=== PATIENT | female | born 1985 | race Two or more races ===

== ENCOUNTER 2016-12-12 22:29 | Inpatient (IN) | payer OTHER ==
[~2016-12-12] VITALS: Ht 134.6 cm; Wt 59.0 kg
[~2016-12-12 22:29] MED LIST: CIPR500T94 PO; PHEN-318 PO
[2016-12-12 23:02] LABS: BILIRUBIN,URINE NEGATIVE (NEG); GLUCOSE,URINE 100 mg/dL (NEG); NITRITE,URINE POSITIVE (NEG); PROTEIN,URINE 30 mg/dL (NEG-TRACE); UROBILINOGEN,URINE 0.2 mg/dL (0.2 mg/dL)
[2016-12-12 23:08] LABS: BASO % 0 % (0-3); EOS % 0 % (0-3); HEMATOCRIT 35.6 % (36.0-47.0); HEMOGLOBIN 11.9 g/dL (12.0-15.5); LYMPH # 1.6 x10^3/uL (1.0-4.8); LYMPH % 13 % (24-48); MEAN CORPUSCULAR HEMOGLOBIN 28 pg (25-35); MEAN CORPUSCULAR HGB CONC 34 g/dL (31-37); MEAN CORPUSCULAR VOLUME 85 fL (79-100); MONO % 12 % (0-9); NEUT % 75 % (31-73); PLATELET COUNT 201 x10^3/uL (140-400); RED CELL DISTRIBUTION WIDTH 13.8 % (11.5-14.5); WHITE BLOOD COUNT 11.8 x10^3/uL (4.0-11.0)
--- NOTE | 2016-12-12 23:09 | PHYS DOC ---
Past Medical History Past Medical History: No Pertinent History Past Surgical History: Cholecystectomy Alcohol Use: None Drug Use: None Adult General Chief Complaint Chief Complaint: FLANK PAIN HPI HPI 31-year-old female comes in with left flank pain is worsened over the last 3 days and is somewhat intermittent in nature. She also has dysuria with some mild hematuria. She has had symptoms like this before that were present in September and it sounds like she had a polynephritis that resolved with oral antibiotic therapy. She denies any other major health problems. She denies any nausea or vomiting. She states she has been able to eat and drink without difficulty. She denies any significant abdominal pain. She denies any vaginal bleeding. She rates her pain about a 6 out of 10 localized all to the left flank. Review of Systems Review of Systems Constitutional: Denies fever or chills [] Eyes: Denies change in visual acuity, redness, or eye pain [] HENT: Denies nasal congestion or sore throat [] Respiratory: Denies cough or shortness of breath [] Cardiovascular: No additional information not addressed in HPI [] GI: Denies abdominal pain, nausea, vomiting, bloody stools or diarrhea [] : Has dysuria, has hematuria [] Musculoskeletal: Denies back pain or joint pain [] Integument: Denies rash or skin lesions [] Neurologic: Denies headache, focal weakness or sensory changes [] Endocrine: Denies polyuria or polydipsia [] Current Medications Current Medications Current Medications Medications (Trade) Dose Ordered Sig/Rachel Start Time Stop Time Status Last Admin Dose Admin Ceftriaxone Sodium/Sodium Chloride (Rocephin/Iv Sodium Chloride 0.9% 50ml) 50 ml @ 100 mls/hr Q24H 12/13/16 00:30 Fentanyl Citrate (Fentanyl 2ml Vial) 50 mcg 1X ONCE 12/12/16 23:15 12/12/16 23:16 DC 12/12/16 23:26 50 MCG Fentanyl Citrate 50 mcg 50 mcg PRN Q2HR PRN 12/13/16 00:30 12/14/16 00:29 Ondansetron HCl (Zofran) 4 mg PRN Q8HRS PRN 12/13/16 00:30 12/14/16 00:29 Potassium Chloride 60 meq 60 meq 1X ONCE 12/12/16 23:55 12/12/16 23:56 DC 12/13/16 00:23 60 MEQ Sodium Chloride (Iv Sodium Chloride 0.9% 1000ml Bag) 1,000 ml @ 125 mls/hr Q8H 12/13/16 00:30 12/14/16 00:29 Allergies Allergies Allergies Coded Allergies Type Severity Reaction Last Updated Verified No Known Drug Allergies 09/03/16 No Physical Exam Physical Exam Constitutional: Well developed, well nourished, no acute distress, non-toxic appearance. [] HENT: Normocephalic, atraumatic, bilateral external ears normal, oropharynx moist, no oral exudates, nose normal. [] Eyes: PERRLA, EOMI, conjunctiva normal, no discharge. [] Neck: Normal range of motion, no tenderness, supple, no stridor. [] Cardiovascular:Heart rate regular rhythm, no murmur [] Lungs & Thorax: Bilateral breath sounds clear to auscultation [] Abdomen: Bowel sounds normal, soft, no tenderness, no masses, no pulsatile masses. [] Skin: Warm, dry, no erythema, no rash. [] Back: No tenderness, left CVA tenderness. [] Extremities: No tenderness, no cyanosis, no clubbing, ROM intact, no edema. [] Neurologic: Alert and oriented X 3, normal motor function, normal sensory function, no focal deficits noted. [] Psychologic: Affect normal, judgement normal, mood normal. [] Current Patient Data Vital Signs Vital Signs Date Time Temp Pulse Resp B/P Pulse Ox O2 Delivery O2 Flow Rate FiO2 12/12/16 22:50 99.2 107 16 110/66 97 Room Air 99.2 Lab Values Laboratory Tests Test 12/12/16 22:00 12/12/16 22:45 12/12/16 22:51 White Blood Count 11.8x10^3/uL (4.0-11.0) H Red Blood Count 4.20x10^6/uL (3.50-5.40) Hemoglobin 11.9g/dL (12.0-15.5) L Hematocrit 35.6% (36.0-47.0) L Mean Corpuscular Volume 85fL (79-100) Mean Corpuscular Hemoglobin 28pg (25-35) Mean Corpuscular Hemoglobin Concent 34g/dL (31-37) Red Cell Distribution Width 13.8% (11.5-14.5) Platelet Count 201x10^3/uL (140-400) Neutrophils (%) (Auto) 75% (31-73) H Lymphocytes (%) (Auto) 13% (24-48) L Monocytes (%) (Auto) 12% (0-9) H Eosinophils (%) (Auto) 0% (0-3) Basophils (%) (Auto) 0% (0-3) Neutrophils # (Auto) 8.8x10^3uL (1.8-7.7) H Lymphocytes # (Auto) 1.6x10^3/uL (1.0-4.8) Monocytes # (Auto) 1.4x10^3/uL (0.0-1.1) H Eosinophils # (Auto) 0.0x10^3/uL (0.0-0.7) Basophils # (Auto) 0.0x10^3/uL (0.0-0.2) Sodium Level 134mmol/L (136-145) L Potassium Level 2.6mmol/L (3.5-5.1) *L Chloride Level 98mmol/L (98-107) Carbon Dioxide Level 23mmol/L (21-32) Anion Gap 13 (6-14) Blood Urea Nitrogen 9mg/dL (7-20) Creatinine 1.0mg/dL (0.6-1.0) Estimated GFR (Cockcroft-Gault) 63.9 Glucose Level 210mg/dL (70-99) H Calcium Level 8.8mg/dL (8.5-10.1) Urine Collection Type Unknown Urine Color Yellow Urine Clarity Clear Urine pH 6.0 Urine Specific [place] 1.015 Urine Protein 30mg/dL (NEG-TRACE) Urine Glucose (UA) 100mg/dL (NEG) Urine Ketones (Stick) 40mg/dL (NEG) Urine Blood Trace (NEG) Urine Nitrite Positive (NEG) Urine Bilirubin Negative (NEG) Urine Urobilinogen Dipstick 0.2mg/dL (0.2 mg/dL) Urine Leukocyte Esterase Large (NEG) Urine RBC Occ/HPF (0-2) Urine WBC Tntc/HPF (0-4) Urine Squamous Epithelial Cells Few/LPF Urine Bacteria Many/HPF (0-FEW) Urine Mucus Marked/LPF POC Urine HCG, Qualitative Hcg negative (Negative) Laboratory Tests 12/12/16 22:00 Laboratory Tests 12/12/16 22:00 EKG EKG [] Radiology/Procedures Radiology/Procedures CT of the abdomen/pelvis without contrast demonstrates the following: Evaluation of solid organs and bowel is limited without oral and IV contrast, decreasing sensitivity for detection of pathology. This is standard for renal stone protocol. The lung bases essentially clear. Cardiac size normal. There are 2 subcentimeter right cardiophrenic lymph nodes. The gallbladder is surgically absent. Liver, spleen, pancreas, adrenal glands, and abdominal aortic caliber are normal. No renal calculus. The right kidney is normal. There is mild left hydroureteronephrosis secondary to a 3 x 3 x 7 millimeter calculus. Just distal to this there is a 2 millimeter calculus, image 105. No other ureteral calculi are seen. Urinary bladder is not well distended. No bladder calculus. Stomach unremarkable. No dilated small bowel. There is moderate stool in the colon. No evidence of colitis. The appendix is normal. No abdominal adenopathy or free fluid. Uterus unremarkable, not well evaluated with CT. No pelvic free fluid. There is minimal grade 1 anterolisthesis of L5 on S1. There is bilateral L5 spondylolysis. Course & Med Decision Making Course & Med Decision Making Pertinent Labs and Imaging studies reviewed. (See chart for details) This otherwise healthy 31-year-old female with ongoing left flank pain will receive a CT scan rule out any acute stone. Urinalysis and BMP were also be obtained. Her urinalysis demonstrates signs of infection with nitrites and leukocyte esterase. Her CT of her abdomen and pelvis demonstrates an obstructive uropathy with 2 calculi in the proximal left ureter with some mild hydronephrosis. Findings were discussed with the urologist, Dr. Romano, who agreed that the patient will be needing admission and likely procedure on Wednesday. I'll be admitting her to the hospitalist, Dr. Chadwick, who agreed to accept admission with urology consult. A dose of IV Rocephin was given to the patient. She was admitted without incident. Pt did have a hypokalemia of 2.6 for which potassium replacement was administered. Dragon Disclaimer Dragon Disclaimer This electronic medical record was generated, in whole or in part, using a voice recognition dictation system. Departure Departure Impression: Primary Impression: Obstructive uropathy Additional Impressions: Urinary tract infection Hypokalemia Disposition: ADMITTED INPATIENT Admitting Physician: Jasmyn Chadwick Condition: STABLE Referrals: NO PCP (PCP) Problem Qualifiers SUSU ESTRADA DO Dec 12, 2016 23:09
[2016-12-12 23:12] LABS: BACTERIA,URINE MANY /HPF (0-FEW); RBC,URINE OCC /HPF (0-2); WBC,URINE TNTC /HPF (0-4)
[2016-12-12 23:13] LABS: SQUAMOUS EPITHELIAL CELL,UR FEW /LPF
[2016-12-12] MEDS ORDERED: FENTANYL PF 100 MCG/2 ML VIAL. IV ONE (23:15)
[2016-12-12 23:17] LABS: CALCIUM 8.8 mg/dL (8.5-10.1); GFR 63.9
[2016-12-12 23:21] LABS: POTASSIUM 2.6 mmol/L (3.5-5.1)
--- NOTE | 2016-12-12 23:27 | RAD ---
PROCEDURE CT abdomen pelvis without contrast. HISTORY Left flank pain. TECHNIQUE Helical CT imaging of the abdomen and pelvis is performed without IV or oral contrast using renal stone protocol. PQRS: One or more the following individualized dose reduction techniques were utilized for the study: 1. Automated exposure control. 2. Adjustment of the mA and/or kV according to patient size. 3. Use of iterative reconstruction technique. COMPARISON None. FINDINGS Evaluation of solid organs and bowel is limited without oral and IV contrast, decreasing sensitivity for detection of pathology. This is standard for renal stone protocol. The lung bases essentially clear. Cardiac size normal. There are 2 subcentimeter right cardiophrenic lymph nodes. The gallbladder is surgically absent. Liver, spleen, pancreas, adrenal glands, and abdominal aortic caliber are normal. No renal calculus. The right kidney is normal. There is mild left hydroureteronephrosis secondary to a 3 x 3 x 7 millimeter calculus. Just distal to this there is a 2 millimeter calculus, image 105. No other ureteral calculi are seen. Urinary bladder is not well distended. No bladder calculus. Stomach unremarkable. No dilated small bowel. There is moderate stool in the colon. No evidence of colitis. The appendix is normal. No abdominal adenopathy or free fluid. Uterus unremarkable, not well evaluated with CT. No pelvic free fluid. There is minimal grade 1 anterolisthesis of L5 on S1. There is bilateral L5 spondylolysis. IMPRESSION There is mild left obstructive uropathy secondary to 2 calculi in the proximal left ureter. Electronically signed by: Lloyd Rocha MD (Dec 12, 2016 23:26:24)
[2016-12-12] MEDS ORDERED: IV NORMAL SALINE 1000ML BAG 1,000 ML IV ONE (23:45)
[2016-12-12] MEDS ORDERED: POTASSIUM CHLORIDE 20 MEQ TABLET.ER. PO ONE (23:55)
[2016-12-13] MEDS ORDERED: FENTANYL PF 100 MCG/2 ML VIAL. IV PRN (00:30)
[2016-12-13] MEDS ORDERED: ONDANSETRON PF 4 MG/2 ML VIAL. IV PRN ×2 (00:30→10:15)
[2016-12-13] MEDS ORDERED: CEFTRIAXONE SODIUM 1 GM in IV NORMAL SALINE 50ML 50 ML IV SCH ×2 (00:30→10:15)
[2016-12-13 01:30] VITALS: BP 98/60
[2016-12-13] MEDS: IV NORMAL SALINE 1000ML BAG 1,000 ML IV SCH ×3 (01:30→16:30)
[2016-12-13 07:00] VITALS: BP 84/51
[2016-12-13] MEDS: CEFTRIAXONE SODIUM 1 GM in IV NORMAL SALINE 50ML 50 ML IV SCH (09:45)
[2016-12-13] MEDS ORDERED: ALBUTEROL SULFATE 2.5 MG/3 ML NEBU. NEB PRN (10:15)
[2016-12-13] MEDS ORDERED: ACETAMINOPHEN 325 MG TABLET. PO PRN (10:15)
[2016-12-13] MEDS ORDERED: HYDROCODONE/APAP 5/325MG TABLET. PO PRN (10:15)
[2016-12-13] MEDS ORDERED: hydrALAZINE 20 MG/ML VIAL. IVP PRN (10:15)
[2016-12-13 11:00] VITALS: BP 97/52
--- NOTE | 2016-12-13 11:24 | PDOC ---
Provider Note Provider Note UROLOGY: Proximal L ureteral calculi with flank pain Chart reviewed, patient examined, CT-scan reviewed Plan: Treat UTI Schedule for cysto Left stent on Tues. They appear to understand and agreeable. JOSIAH WILSON DO Dec 13, 2016 11:24
[2016-12-13] MEDS ORDERED: MORPHINE SULFATE 2 MG/ML DISP.SYRIN. IV PRN (12:00)
--- NOTE | 2016-12-13 12:02 | PDOC1 ---
History and Physical Current Problem List Problem List Problems Medical Problems: (1) Hypokalemia Status: Acute (2) Obstructive uropathy Status: Acute (3) Urinary tract infection Status: Acute (4) UTI (urinary tract infection) Status: Acute Current Medications Current Medications Current Medications Medications (Trade) Dose Ordered Sig/Rachel Start Time Stop Time Status Last Admin Dose Admin Acetaminophen (Tylenol) 325 mg PRN Q6HRS PRN 12/13/16 10:15 Acetaminophen/ Hydrocodone Bitart (Lortab 5/325) 1 tab PRN Q6HRS PRN 12/13/16 10:15 Albuterol Sulfate 2.5 mg 2.5 mg PRN Q4HRS PRN 12/13/16 10:15 Ceftriaxone Sodium/Sodium Chloride (Rocephin/Iv Sodium Chloride 0.9% 50ml) 50 ml @ 100 mls/hr Q24H 12/13/16 10:15 UNV Fentanyl Citrate (Fentanyl 2ml Vial) 50 mcg 1X ONCE 12/12/16 23:15 12/12/16 23:16 DC 12/12/16 23:26 50 MCG Fentanyl Citrate 50 mcg 50 mcg PRN Q2HR PRN 12/13/16 00:30 12/14/16 00:29 Hydralazine HCl (Apresoline) 10 mg PRN Q4HRS PRN 12/13/16 10:15 Ondansetron HCl (Zofran) 4 mg PRN Q8HRS PRN 12/13/16 10:15 Potassium Chloride (Klor-Con) 60 meq 1X ONCE 12/12/16 23:55 12/12/16 23:56 DC 12/13/16 00:23 60 MEQ Sodium Chloride (Iv Sodium Chloride 0.9% 1000ml Bag) 1,000 ml @ 125 mls/hr Q8H 12/13/16 00:30 12/14/16 00:29 12/13/16 09:08 125 MLS/HR Allergies Allergies Allergies Coded Allergies Type Severity Reaction Last Updated Verified No Known Drug Allergies 09/03/16 No ROS Review of System CONSTITUTIONAL: No fever or chills EYES: No recent changes SKIN: No rash or itching CARDIOVASCULAR: No chest pain, syncope, palpitations, or edema RESPIRATORY: No SOB or cough GASTROINTESTINAL: No nausea, vomiting or abdominal pain NEUROLOGICAL: No headaches or weakness ENDOCRINE: No cold or heat intolerance GENITOURINARY: urgency or frequency of urination MUSCULOSKELETAL: No back pain or joint pain LYMPHATICS: No enlarged lymph nodes PSYCHIATRIC: No anxiety or depression Physical Exam Physical Exam GEN.: No apparent distress. Alert and oriented. HEENT: Head is normocephalic, atraumatic NECK: Supple. no JVD LUNGS: Clear to auscultation. normal airflow HEART: RRR, S1, S2 present. Peripheral pulses intact ABDOMEN: Soft, nontender. Positive bowel sounds. EXTREMITIES: Without any cyanosis. NEUROLOGIC: Normal speech, normal tone PSYCHIATRIC: Normal affect, normal mood. SKIN: No ulcerations Vitals Vitals Vital Signs Date Time Temp Pulse Resp B/P Pulse Ox O2 Delivery O2 Flow Rate FiO2 12/13/16 07:00 98.3 82 16 84/51 96 Room Air 98.3 Labs Labs Laboratory Tests Test 12/12/16 22:00 12/12/16 22:45 12/12/16 22:51 White Blood Count 11.8x10^3/uL (4.0-11.0) Red Blood Count 4.20x10^6/uL (3.50-5.40) Hemoglobin 11.9g/dL (12.0-15.5) Hematocrit 35.6% (36.0-47.0) Mean Corpuscular Volume 85fL (79-100) Mean Corpuscular Hemoglobin 28pg (25-35) Mean Corpuscular Hemoglobin Concent 34g/dL (31-37) Red Cell Distribution Width 13.8% (11.5-14.5) Platelet Count 201x10^3/uL (140-400) Neutrophils (%) (Auto) 75% (31-73) Lymphocytes (%) (Auto) 13% (24-48) Monocytes (%) (Auto) 12% (0-9) Eosinophils (%) (Auto) 0% (0-3) Basophils (%) (Auto) 0% (0-3) Neutrophils # (Auto) 8.8x10^3uL (1.8-7.7) Lymphocytes # (Auto) 1.6x10^3/uL (1.0-4.8) Monocytes # (Auto) 1.4x10^3/uL (0.0-1.1) Eosinophils # (Auto) 0.0x10^3/uL (0.0-0.7) Basophils # (Auto) 0.0x10^3/uL (0.0-0.2) Sodium Level 134mmol/L (136-145) Potassium Level 2.6mmol/L (3.5-5.1) Chloride Level 98mmol/L (98-107) Carbon Dioxide Level 23mmol/L (21-32) Anion Gap 13 (6-14) Blood Urea Nitrogen 9mg/dL (7-20) Creatinine 1.0mg/dL (0.6-1.0) Estimated GFR (Cockcroft-Gault) 63.9 Glucose Level 210mg/dL (70-99) Calcium Level 8.8mg/dL (8.5-10.1) Urine Collection Type Unknown Urine Color Yellow Urine Clarity Clear Urine pH 6.0 Urine Specific [place] 1.015 Urine Protein 30mg/dL (NEG-TRACE) Urine Glucose (UA) 100mg/dL (NEG) Urine Ketones (Stick) 40mg/dL (NEG) Urine Blood Trace (NEG) Urine Nitrite Positive (NEG) Urine Bilirubin Negative (NEG) Urine Urobilinogen Dipstick 0.2mg/dL (0.2 mg/dL) Urine Leukocyte Esterase Large (NEG) Urine RBC Occ/HPF (0-2) Urine WBC Tntc/HPF (0-4) Urine Squamous Epithelial Cells Few/LPF Urine Bacteria Many/HPF (0-FEW) Urine Mucus Marked/LPF Bedside Urine HCG, Qualitative Hcg negative (Negative) Laboratory Tests Test 12/12/16 22:00 12/12/16 22:45 12/12/16 22:51 White Blood Count 11.8x10^3/uL (4.0-11.0) Red Blood Count 4.20x10^6/uL (3.50-5.40) Hemoglobin 11.9g/dL (12.0-15.5) Hematocrit 35.6% (36.0-47.0) Mean Corpuscular Volume 85fL (79-100) Mean Corpuscular Hemoglobin 28pg (25-35) Mean Corpuscular Hemoglobin Concent 34g/dL (31-37) Red Cell Distribution Width 13.8% (11.5-14.5) Platelet Count 201x10^3/uL (140-400) Neutrophils (%) (Auto) 75% (31-73) Lymphocytes (%) (Auto) 13% (24-48) Monocytes (%) (Auto) 12% (0-9) Eosinophils (%) (Auto) 0% (0-3) Basophils (%) (Auto) 0% (0-3) Neutrophils # (Auto) 8.8x10^3uL (1.8-7.7) Lymphocytes # (Auto) 1.6x10^3/uL (1.0-4.8) Monocytes # (Auto) 1.4x10^3/uL (0.0-1.1) Eosinophils # (Auto) 0.0x10^3/uL (0.0-0.7) Basophils # (Auto) 0.0x10^3/uL (0.0-0.2) Sodium Level 134mmol/L (136-145) Potassium Level 2.6mmol/L (3.5-5.1) Chloride Level 98mmol/L (98-107) Carbon Dioxide Level 23mmol/L (21-32) Anion Gap 13 (6-14) Blood Urea Nitrogen 9mg/dL (7-20) Creatinine 1.0mg/dL (0.6-1.0) Estimated GFR (Cockcroft-Gault) 63.9 Glucose Level 210mg/dL (70-99) Calcium Level 8.8mg/dL (8.5-10.1) Urine Collection Type Unknown Urine Color Yellow Urine Clarity Clear Urine pH 6.0 Urine Specific [place] 1.015 Urine Protein 30mg/dL (NEG-TRACE) Urine Glucose (UA) 100mg/dL (NEG) Urine Ketones (Stick) 40mg/dL (NEG) Urine Blood Trace (NEG) Urine Nitrite Positive (NEG) Urine Bilirubin Negative (NEG) Urine Urobilinogen Dipstick 0.2mg/dL (0.2 mg/dL) Urine Leukocyte Esterase Large (NEG) Urine RBC Occ/HPF (0-2) Urine WBC Tntc/HPF (0-4) Urine Squamous Epithelial Cells Few/LPF Urine Bacteria Many/HPF (0-FEW) Urine Mucus Marked/LPF Bedside Urine HCG, Qualitative Hcg negative (Negative) VTE Prophylaxis Ordered VTE Prophylaxis Devices: No VTE Pharmacological Prophylaxi: No LUCY DA SILVA MD Dec 13, 2016 12:02
[2016-12-13 15:00] VITALS: BP 104/51
[2016-12-13 19:00] VITALS: BP 100/53
[2016-12-13 23:36] VITALS: BP 91/47
[2016-12-14 03:40] VITALS: BP 100/60
[2016-12-14 05:00] LABS: BASO % 0 % (0-3); EOS % 1 % (0-3); HEMOGLOBIN 11.7 g/dL (12.0-15.5); LYMPH # 2.7 x10^3/uL (1.0-4.8); LYMPH % 36 % (24-48); MEAN CORPUSCULAR HEMOGLOBIN 28 pg (25-35); MEAN CORPUSCULAR HGB CONC 33 g/dL (31-37); MEAN CORPUSCULAR VOLUME 87 fL (79-100); MONO % 11 % (0-9); NEUT % 52 % (31-73); PLATELET COUNT 213 x10^3/uL (140-400); RED BLOOD COUNT 4.16 x10^6/uL (3.50-5.40); RED CELL DISTRIBUTION WIDTH 14.2 % (11.5-14.5); WHITE BLOOD COUNT 7.4 x10^3/uL (4.0-11.0)
[2016-12-14 05:33] LABS: CALCIUM 9.2 mg/dL (8.5-10.1); CREATININE 0.8 mg/dL (0.6-1.0); GFR 82.6; POTASSIUM 3.2 mmol/L (3.5-5.1)
[2016-12-14 07:00] VITALS: BP 96/62
[2016-12-14] MEDS: CEFTRIAXONE SODIUM 1 GM in IV NORMAL SALINE 50ML 50 ML IV SCH (08:58)
--- NOTE | 2016-12-14 09:45 | PDOC ---
PROGRESS NOTES Chief Complaint Chief Complaint UTI Nephrolithiasis ASSESSMENT AND PLAN: 1. UTI: on empiric ceftriax. awaiting culture and sensitivity 2. Ureteral stone: appreciate Dr Romano's input. planned OR today 3. Hypokalemia: improving. cont repletion 4. Pain control: adequate. pain spont resolved 5. Dispo: home when cleared by Urology Vitals Vitals Vital Signs Date Time Temp Pulse Resp B/P Pulse Ox O2 Delivery O2 Flow Rate FiO2 12/14/16 07:00 98.1 62 18 96/62 96 Room Air 98.1 Physical Exam General: Alert, Oriented X3, Cooperative Heart: Regular rate Lungs: Clear Abdomen: Normal bowel sounds, Soft, No tenderness Extremities: No edema Skin: No rashes Labs LABS Laboratory Tests Test 12/14/16 03:50 White Blood Count 7.4x10^3/uL (4.0-11.0) Red Blood Count 4.16x10^6/uL (3.50-5.40) Hemoglobin 11.7g/dL (12.0-15.5) Hematocrit 36.0% (36.0-47.0) Mean Corpuscular Volume 87fL (79-100) Mean Corpuscular Hemoglobin 28pg (25-35) Mean Corpuscular Hemoglobin Concent 33g/dL (31-37) Red Cell Distribution Width 14.2% (11.5-14.5) Platelet Count 213x10^3/uL (140-400) Neutrophils (%) (Auto) 52% (31-73) Lymphocytes (%) (Auto) 36% (24-48) Monocytes (%) (Auto) 11% (0-9) Eosinophils (%) (Auto) 1% (0-3) Basophils (%) (Auto) 0% (0-3) Neutrophils # (Auto) 3.8x10^3uL (1.8-7.7) Lymphocytes # (Auto) 2.7x10^3/uL (1.0-4.8) Monocytes # (Auto) 0.8x10^3/uL (0.0-1.1) Eosinophils # (Auto) 0.1x10^3/uL (0.0-0.7) Basophils # (Auto) 0.0x10^3/uL (0.0-0.2) Sodium Level 142mmol/L (136-145) Potassium Level 3.2mmol/L (3.5-5.1) Chloride Level 107mmol/L (98-107) Carbon Dioxide Level 24mmol/L (21-32) Anion Gap 11 (6-14) Blood Urea Nitrogen 8mg/dL (7-20) Creatinine 0.8mg/dL (0.6-1.0) Estimated GFR (Cockcroft-Gault) 82.6 Glucose Level 131mg/dL (70-99) Calcium Level 9.2mg/dL (8.5-10.1) Review of Systems Review of Systems not needed any pain med for several hours. moving w/o difficulties Comment Review of Relevant ALISON PALACIOS MD Dec 14, 2016 09:44
--- NOTE | 2016-12-14 10:15 | CONS ---
DATE OF CONSULTATION: 12/13/2016 CHIEF COMPLAINT: Left flank pain. HISTORY OF PRESENT ILLNESS: A 31-year-old female with a history of left flank pain for several days. She presented to the Emergency Room with left flank pain and dysuria. She does have a previous history of pyelonephritis. Normally, the patient enjoys good health. She does not speak [place] very well, there is an contact worker present. ALLERGIES: No known drug allergies. PAST MEDICAL HISTORY: Significant for previous pyelonephritis. No previous history of kidney stones. PAST SURGICAL HISTORY: The patient has had a previous cholecystectomy. REVIEW OF SYSTEMS: Limited due to the patient's inability to speak [place]ani. PHYSICAL EXAMINATION: GENERAL DESCRIPTION: A 31-year-old female. She is alert and oriented. VITAL SIGNS: Stable. She is afebrile. ABDOMEN: Soft and nontender. She does have some mild left flank tenderness to palpation. The right flank was normal. There are no palpable abdominal masses. No guarding or rigidity. She denies suprapubic tenderness. EXTREMITIES: Good range of motion. Negative for cyanosis or edema. LABORATORY STUDIES: The patient's white blood cell count is 11.8, hemoglobin 11.9, hematocrit 35.6. Electrolytes: Potassium is low at 2.6, BUN is 9, creatinine 1.0. Urinalysis revealed many bacteria, occasional red blood cells, caf-iibzyxwy-ce-count white blood cells, positive nitrite. Urine culture is pending. X-RAY STUDIES: A noncontrast CT scan of the abdomen and pelvis was performed. This revealed mild left hydronephrosis. She has a 3 x 3 x 7 mm calculus in the proximal left ureter and also a 2-mm calculus just distal to the first calculus. IMPRESSION: 1. Urinary tract infection. 2. Proximal left ureteral calculi with mild hydronephrosis. PLAN: 1. We will continue her on IV antibiotics. 2. I told the patient and the contact worker that we plan on performing cystoscopy and stent placement in about 48 hours to relieve the obstruction to the kidney. We will let her go home with a stent and then schedule her for an outpatient procedure for her ureteral calculi. They appear to understand and are agreeable. JOSIAH WILSON DO DR: FELICIA/puma JOB#: [id number] / [id number]
[2016-12-14 11:00] VITALS: BP 100/67
--- NOTE | 2016-12-14 11:28 | HP ---
ADMIT DATE: 12/13/2016 CHIEF COMPLAINT: Flank pain. HISTORY OF PRESENT ILLNESS: A 31-year-old female now presented to the ER with complaints of 3-day history of left-sided flank pain with intermittent urination and frequency. The patient has a prior history of urinary tract infections and at that time symptoms resolved with antibiotics. However, at this time, the patient's symptoms got worsened, which she needs to be come to the ER. At the time of admission, her pain is 6/10, pain is localized to left side. She denies any faye blood. PAST MEDICAL HISTORY: Cholecystectomy. PERSONAL HISTORY: No smoking, no alcohol, no drug abuse, . FAMILY HISTORY: No gallstones or kidney stones. REVIEW OF SYSTEMS AND PHYSICAL EXAMINATION: Please see my electronic H and P. LABORATORY FINDINGS: WBC 11.8, hemoglobin 11.9 and hematocrit 39.6. Platelets 201. Chemistries: Sodium is 134, potassium 2.6, chloride is 98, anion gap 13, glucose is 210. Urine nitrites positive, leukocyte esterase large. IMAGING STUDIES: Abdominal and pelvic CT showed mild left obstructive uropathy secondary to calculi in the proximal left ureter. ASSESSMENT AND PLAN: 1. Left obstructive uropathy secondary to proximal left ureter obstruction ____. 2. Hypokalemia. 3. Pain due to the above. 4. Urinary tract infection. PLAN: 1. Pain controlled with IV morphine at 2 mg q. 2 hours. 2. IV Rocephin. 3. IV hydration. 4. Dr. Andrade has been consulted. Anticipated stent placement in one or two days ____. 5. Monitor electrolytes in the a.m. 6. Potassium had been replaced prior to arrival. LUCY DA SILVA MD DR: RIKI/puma JOB#: [id number] / [id number]
[2016-12-14 15:00] VITALS: BP 101/63
[2016-12-15] MEDS ORDERED: MORPHINE SULFATE 2 MG/ML DISP.SYRIN. IV PRN (07:00)
[2016-12-15] MEDS ORDERED: LIDOCAINE 1% 1 ML SYRINGE. ID PRN (07:00)
[2016-12-15] MEDS ORDERED: HYDROMORPHONE 2 MG/ML VIAL. IV PRN (07:00)
[2016-12-15] MEDS ORDERED: FENTANYL PF 100 MCG/2 ML VIAL. IV PRN ×2 (07:00)
[2016-12-15] MEDS ORDERED: PROCHLORPERAZINE 10 MG/2 ML VIAL. IV PRN (07:00)
[2016-12-15] MEDS ORDERED: ONDANSETRON PF 4 MG/2 ML VIAL. IV PRN (07:00)
[2016-12-15] MEDS ORDERED: IV RINGERS,LACTATED 1000ML 1,000 ML IV SCH (07:00)
== END 2016-12-14 18:12 | disposition home or self-care (01) | DRG 694 ==
LOC: ER 22:29 → 4 NORTH 12-13 00:12
PROVIDERS: ADMIT Internal Medicine; ATTEND Internal Medicine
DX: N13.2 Hydronephrosis with renal and ureteral calculous obstruction (principal); N39.0 Urinary tract infection, site not specified; N13.9 Obstructive and reflux uropathy, unspecified; E87.6 Hypokalemia; Z90.49 Acquired absence of other specified parts of digestive tract; Z87.440 Personal history of urinary (tract) infections; Z79.899 Other long term (current) drug therapy
CPT/HCPCS: 36415; 74176; 80048; 81001; 81025; 85027; 87086; 94250; 96361; 96374; J0696; J3010; J7030; 99285-25

== ENCOUNTER 2020-08-14 15:46 | Emergency (ER) | payer OTHER ==
[~2020-08-14] VITALS: Ht 142.2 cm; Wt 56.0 kg
[2020-08-14 18:15] VITALS: BP 132/82
--- NOTE | 2020-08-14 18:28 | PHYS DOC ---
Past Medical History Past Medical History: No Pertinent History Past Surgical History: Cholecystectomy Smoking Status: Never Smoker Alcohol Use: None Drug Use: None General Adult EDM: Chief Complaint: PAIN ON URINATION HPI: HPI: Patient is a 34 year old female who presents with a one-day history of dysuria and urinary frequency. Patient denies any fevers chills but has some mild lower abdominal discomfort. Patient denies any nausea or vomiting or diarrhea. Patient states symptoms are worse with urination and better with rest. Review of Systems: Review of Systems: Constitutional: Denies fever or chills. [] Eyes: Denies change in visual acuity. [] HENT: Denies nasal congestion or sore throat. [] Respiratory: Denies cough or shortness of breath. [] Cardiovascular: Denies chest pain or edema. [] GI: complains of some low abd pain, denies n/v/d : c/o dysuria Musculoskeletal: Denies back pain or joint pain. [] Integument: Denies rash. [] Neurologic: Denies headache, focal weakness or sensory changes. [] Endocrine: Denies polyuria or polydipsia. [] Lymphatic: Denies swollen glands. [] Psychiatric: Denies depression or anxiety. [] Heart Score: Risk Factors: Risk Factors: DM, Current or recent (<one month) smoker, HTN, HLP, family history of CAD, obesity. Risk Scores: Score 0 - 3: 2.5% MACE over next 6 weeks - Discharge Home Score 4 - 6: 20.3% MACE over next 6 weeks - Admit for Clinical Observation Score 7 - 10: 72.7% MACE over next 6 weeks - Early Invasive Strategies Current Medications: Active Scripts Active Pyridium (Phenazopyridine Hcl) 200 Mg Tablet 200 Mg PO Q8HRS PRN Cipro (Ciprofloxacin Hcl) 500 Mg Tablet 1 Tab PO BID PRN Allergies: Allergies: Allergies Coded Allergies Type Severity Reaction Last Updated Verified No Known Drug Allergies 09/03/16 No Physical Exam: PE: Constitutional: Well developed, well nourished, no acute distress, non-toxic appearance. [] HENT: Normocephalic, atraumatic, bilateral external ears normal, no trismus nose normal. [] Eyes: PERRLA, EOMI, conjunctiva normal, no discharge. [] Neck: Normal range of motion, no tenderness, supple, no stridor. [] Cardiovascular:Heart rate regular rhythm, peripheral pulses intact cap refill is brisk Lungs & Thorax: Bilateral breath sounds clear, no respiratory distress Abdomen: soft, no tenderness, no masses, no pulsatile masses. [] Skin: Warm, dry, no erythema, no rash. [] Back: No tenderness, no CVA tenderness. [] Extremities: No tenderness, no cyanosis, no clubbing, ROM intact, no edema. [] Neurologic: Alert and oriented X 3, normal motor function, normal sensory function, no focal deficits noted. [] Psychologic: Affect normal, judgement normal, mood normal. [] Current Patient Data: Labs: Laboratory Tests Test 08/14/20 18:22 08/14/20 18:29 Urine Collection Type Unknown Urine Color Yellow Urine Clarity Cloudy Urine pH 5.5 Urine Specific Orient <=1.005 Urine Protein 30 mg/dL Urine Glucose (UA) 100 mg/dL Urine Ketones (Stick) Negative mg/dL Urine Blood Large Urine Nitrite Positive Urine Bilirubin Negative Urine Urobilinogen Dipstick 0.2 mg/dL Urine Leukocyte Esterase Large Urine RBC 20-40 /HPF Urine WBC Tntc /HPF Urine Squamous Epithelial Cells Many /LPF Urine Amorphous Sediment Present /HPF Urine Bacteria Few /HPF Urine Mucus Slight /LPF Bedside Urine HCG, Qualitative Hcg negative Vital Signs: Vital Signs Date Time Temp Pulse Resp B/P (MAP) Pulse Ox O2 Delivery O2 Flow Rate FiO2 08/14/20 18:15 98.7 88 16 132/82 (99) 99 Room Air 98.7 EKG: EKG: [] Radiology/Procedures: Radiology/Procedures: [] Course & Med Decision Making: Course & Med Decision Making Pertinent Labs and Imaging studies reviewed. (See chart for details) [] 34-year-old female presents with signs symptoms consistent with a urinary tract infection. Patient is not and has no evidence of sepsis. Patient was placed on peridium and Keflex. Return precautions given. Dragon Disclaimer: Dragon Disclaimer: This electronic medical record was generated, in whole or in part, using a voice recognition dictation system. Departure Departure Impression: Primary Impression: UTI (urinary tract infection) Condition: STABLE Referrals: DI JOHNS MD (PCP) 2-3 days Patient Instructions: Urinary Tract Infection Additional Instructions: EMERGENCY DEPARTMENT GENERAL DISCHARGE INSTRUCTIONS THANK YOU for coming to [facility] Emergency Department (ED) today and trusting us with your care. We trust that you had a positive experience in our Emergency Department. If you wish to speak to the department Management you can contact the electronics department manager at . YOUR FOLLOW UP INSTRUCTIONS ARE FOLLOWS: Do you have a private doctor? If you do not have a private doctor, please ask for a resource list of physicians or clinics that may be able to assist you with follow up care. The Emergency Physician has interpreted your x-rays. The X-ray specialist will also review them. If there is a change in the findings you will be notified in 48 hours when at all possible. A lab test or lab culture may have been done, your results will be reviewed and you will be notified if you need a change in treatment. ADDITIONAL INSTRUCTIONS AND INFORMATION Your care today has been supervised by a physician who is specially trained in emergency care. Many problems require more than one evaluation for a complete diagnosis and treatment. We recommend that you schedule your follow up appointment as recommended to ensure complete treatment of your illness or injury. If you are unable to obtain follow up care and continue to have a problem, or if your condition worsens we recommend that you return to the ED. We are not able to safely determine your condition over the phone nor are we able to give sound medical advice over the phone. For these safety reasons, if you call for medical advice we will ask you to come to the ED for further evaluation If you have any questions regarding these discharge instructions please call the ED at . SAFETY INFORMATION In the interest of safety, wellness, and injury prevention; we encourage you to wear your seatbelt, if you smoke; quit smoking, and we encourage your family to use prote ctive helmet for bicycling and other sporting events that present an increased risk for head injury. IF YOUR SYMPTOMS WORSEN OR NEW SYMPTOMS DEVELOP, OR YOU HAVE CONCERNS ABOUT YOUR CONDITION; OR IF YOUR CONDITION WORSENS WHILE YOU ARE WAITING FOR YOUR FOLLOW UP APPOINTMENT; EITHER CONTACT YOUR PRIMARY CARE DOCTOR, THE PHYSICIAN WHOSE NAME AND NUMBER YOU WERE GIVEN, OR RETURN TO THE ED IMMEDIATELY. Scripts Cephalexin (KEFLEX) 500 Mg Capsule 500 MG PO QID for 7 Days, #28 CAP Prov: SUSU ARAUJO MD 08/14/20 Phenazopyridine Hcl (PYRIDIUM) 200 Mg Tablet 1 TAB PO TID for urinary discomfort for 2 Days, #6 TAB 0 Refills Prov: SUSU ARAUJO MD 08/14/20 SUSU ARAUJO MD Aug 14, 2020 18:28
[2020-08-14 18:38] LABS: BILIRUBIN,URINE NEGATIVE (NEG); CLARITY,URINE CLOUDY; COLOR,URINE YELLOW; NITRITE,URINE POSITIVE (NEG); PH,URINE 5.5 (<5.0-8.0); PROTEIN,URINE 30 mg/dL (NEG-TRACE); UROBILINOGEN,URINE 0.2 mg/dL (0.2 mg/dL)
[2020-08-14 18:57] LABS: AMORPHOUS SEDIMENT,UR PRESENT /HPF; BACTERIA,URINE FEW /HPF (0-FEW); WBC,URINE TNTC /HPF (0-4)
[2020-08-14 18:58] LABS: RBC,URINE 20-40 /HPF (0-2)
[2020-08-14] MEDS ORDERED: PHEN-318 PO (19:15)
[2020-08-14] MEDS ORDERED: CEPH-264 PO (19:15)
== END 2020-08-14 19:29 | disposition home or self-care (01) ==
LOC: ER 15:46
DX: N39.0 Urinary tract infection, site not specified (principal); R10.30 Lower abdominal pain, unspecified; R30.0 Dysuria; Z90.49 Acquired absence of other specified parts of digestive tract
CPT/HCPCS: 81001; 81025; 87077; 87086; 87186; 99283